=== PATIENT | male | born 1960 | race Caucasian/White ===

== ENCOUNTER 2023-12-10 14:02 | Emergency (ER) | payer BC ==
[2023-12-10] MEDS ORDERED: BISACODYL E.C. 5 MG TAB PO ONE (14:49)
[2023-12-10] MEDS ORDERED: NA CHLORIDE 0.9% 1,000 ML ONE (14:50)
[2023-12-10] MEDS ORDERED: LACTULOSE 20 GM/30 ML UCUP ONE (14:50)
[2023-12-10 14:57] LABS: Absolute Lymphocytes (CBC) 0.6 K/uL (0.7-4.9); Absolute Monocytes 0.3 K/uL (0.1-1.3); Absolute Neutrophil 7.6 K/uL (1.8-8.0); Basophils % 0.3 % (0-1.3); Eosinophils % 0.1 % (0-4.4); Hematocrit 46.5 % (39.6-49.0); Hemoglobin 15.6 g/dL (13.6-17.9); Lymphocytes % 7.4 % (15.3-44.8); MCHC 33.6 g/dL (32.0-36.0); MCV 89.3 fL (80-100); MPV 6.4 fL (7.6-11.3); Monocytes % 3.4 % (3.3-12.3); Neutrophils % 88.8 % (41.7-73.7); Nucleated Red Blood Cells % 0.4 % (0-0); Platelets 264 thou/uL (152-406); Red Cell Distribution Width 14.3 % (12.1-15.2)
[2023-12-10 15:09] LABS: Albumin 3.9 g/dL (3.4-5.0); Anion Gap 5.8 mEq/L (5.0-15.0); Bilirubin Total 0.5 mg/dL (0.2-1.0); Globulin 4.1 g/dL (2.3-3.5); Potassium 3.8 mEq/L (3.5-5.1)
--- NOTE | 2023-12-10 16:03 | RAD REPORT ---
EXAMINATION: CT ABDOMEN AND PELVIS WITH CONTRAST CLINICAL INDICATION: Male, 62 years old.Abd pain;Constipation TECHNIQUE: CT abdomen and pelvis was performed, after the administration of IV contrast, as [facility]. Axial, sagittal and coronal reconstructions were obtained. One or more of the following dose reduction techniques were used: Automated exposure control, adjustment of the mA and/o r kV according to patient size, and/or iterative reconstruction. Unless otherwise specified, incidental findings do not require dedicated imaging follow-up. [id number]. COMPARISON: No prior exam. FINDINGS: LOWER CHEST: The visualized lung bases are clear. LIVER: Low-density lesion in the hepatic dome has benign imaging features. Hepatic steatosis GALLBLADDER/BILE DUCT: Cholecystectomy? PANCREAS: No significant abnormality. SPLEEN: Normal size. No focal lesion. ADRENALS: Normal; no mass. KIDNEYS AND URETERS: Normal size and contour. No hydronephrosis. GASTROINTESTINAL TRACT: Nonspecific small bowel fluid present. Moderate formed stool in the colon.Nor mal appendix. PERITONEUM: Mild nonspecific mesenteric edema. No pathologic lymphadenopathy. Fat-containing umbilica l hernia. LYMPH NODES: No lymphadenopathy. ABDOMINAL AORTA AND OTHER VESSELS: Normal caliber aorta and IVC. Mild atherosclerotic changes. URINARY BLADDER: Normal contour. REPRODUCTIVE ORGANS: No pathologic process MUSCULOSKELETAL: No acute or suspicious osseous abnormality. Moderate to severe disc height loss at L 5-S1. ADDITIONAL FINDINGS: None. IMPRESSION: No definite acute findings identified. Normal appendix. Nonspecific mesenteric edema which could refl ect mesenteric panniculitis.No bowel obstruction.
[2023-12-10] MEDS ORDERED: MAGNESIUM CITRATE 300 ML BOT ONE (17:46)
--- NOTE | 2023-12-10 17:47 | ER ---
Nurse's Notes [facility] Name: Wyatt Mac Jr Age: 62 yrs Sex: Male : 1960 Arrival Date: 12/10/2023 Time: 14:02 Bed 20 Private MD: Diagnosis: Constipation, unspecified;Other hemorrhoids-external Presentation: 12/09 14:31 Chief complaint: Patient states: "I've been on a Keto diet for the past 19 months and aa5 I've had constipation but this time it's been about a week since last bowel movement". Pt states "something on the inside came out when I was trying to have a bowel movement". 14:31 Coronavirus screen: At this time, the client does not indicate any symptoms associated aa5 with coronavirus-19. Ebola Screen: Patient denies travel to an Ebola-affected area in the 21 days before illness onset. Initial Sepsis Screen: Does the patient meet any 2 criteria? No. Patient's initial sepsis screen is negative. Does the patient have a suspected source of infection? No. Patient's initial sepsis screen is negative. Risk Assessment: Do you want to hurt yourself or someone else? Patient reports no desire to harm self or others. Onset of symptoms was December 2023. 14:31 Acuity: NERY 3 aa5 14:31 Method Of Arrival: Ambulatory aa5 Historical: - Allergies: 14:32 No Known Allergies; aa5 - PMHx: 14:32 Bladder problem; Hypertension (weight controlled); aa5 - PSHx: 14:32 Tonsillectomy; Cholecystectomy; aa5 14:34 Prostate Sx; aa5 - Immunization history:: Adult Immunizations up to date. - Infectious Disease History:: Denies. - Social history:: Smoking status: Patient denies any tobacco usage or history of. Screenin:02 [facility] ED Fall Risk Assessment (Adult) History of falling in the last 3 months, ll1 including since admission No falls in past 3 months (0 pts) Confusion or Disorientation No (0 pts) Intoxicated or Sedated No (0 pts) Impaired Gait No (0 pts) Mobility Assist Device Used No (0 pt) Altered Elimination Yes (1 pt) Score/Fall Risk Level 0 - 2 = Low Risk Maintained a safe environment, Hourly rounding (assess needs \\T\\ fall precautionary measures) done. Abuse screen: Denies threats or abuse. Nutritional screening: No deficits noted. Tuberculosis screening: No symptoms or risk factors identified. Assessment: 14:55 General: Appears distressed, uncomfortable, Behavior is calm, cooperative, appropriate ll1 for age. Pain: Complains of pain in abdomen. GI: Reports lower abdominal pain, constipation. 15:12 Reassessment: No changes from previously documented assessment. reports medium sized ll1 BM, gait steady from restroom. 16:10 Reassessment: No changes from previously documented assessment. Patient and/or family ll1 updated on plan of care and expected duration. Pain level reassessed. Patient is alert, oriented x 3, equal unlabored respirations, skin warm/dry/pink. 17:38 Reassessment: Ryann Parks at for rectal exam. ll1 17:38 GI: Bowel sounds present X 4 quads. Abd is soft and non tender X 4 quads. ll1 17:59 Reassessment: No changes from previously documented assessment. Patient and/or family ll1 updated on plan of care and expected duration. Pain level reassessed. Patient is alert, oriented x 3, equal unlabored respirations, skin warm/dry/pink. Patient states feeling better. Patient states symptoms have improved. Vital Signs: 14:31 BP 147 / 95; Pulse 90; Resp 19 S; Temp 98.7(O); Pulse Ox 99% on R/A; Weight 107.5 kg aa5 (R); Height 6 ft. 4 in. (R); 17:58 BP 118 / 82; Pulse 89; Resp 19; Pulse Ox 99% ; ll1 14:31 Body Mass Index 28.85 (107.50 kg, 193.04 cm) aa5 ED Course: 14:06 Patient arrived in ED. mg5 14:12 Mian Parks PA is PHCP. cp 14:12 Raul Amaya MD is Attending Physician. cp 14:31 Arm band placed on. aa5 14:36 Triage completed. aa5 14:40 Shamir Goodman, MARGARET is Primary Nurse. ll1 14:40 Patient placed in an exam room, on a stretcher. ll1 14:55 No provider procedures requiring assistance completed. Inserted saline lock: 22 gauge ll1 in right antecubital area, using aseptic technique. Blood collected. Flushed with 10 mL NS. 14:55 Initial lab(s) drawn, by me, sent to lab. ll1 15:03 Patient has correct armband on for positive identification. Bed in low position. ll1 Provided Education on: ER procedures and process. Cardiac monitoring not applicable on this patient. 15:51 CT Abd/Pelvis - PO and IV Contrast In Process Unspecified. EDMO 17:45 Stefan Gray MD is Referral Physician. cp 17:45 Referral Physician role handed off by Stefan Gray MD cp 17:45 Stefan Gray MD is Referral Physician. cp 17:59 IV discontinued, intact, bleeding controlled, No redness/swelling at site. Pressure ll1 dressing applied. Administered Medications: 14:55 Drug: NS 0.9% IV 1000 ml IV at 1 bolus Per protocol; to be given as a bolus over 60 ll1 minutes Route: IV; Rate: 1 bolus; Site: right antecubital; 16:00 Follow up: Response: No adverse reaction; IV Status: Completed infusion; IV Intake: ll1 1000ml 14:55 Drug: Lactulose PO 30 grams 45 ml PO once Volume: 45 ml; Route: PO; ll1 17:39 Follow up: Response: No adverse reaction ll1 14:55 Drug: Dulcolax PO Delayed Release Tablet 5 mg PO once Route: PO; ll1 17:39 Follow up: Response: No adverse reaction; RASS: Alert and Calm (0) ll1 17:58 Drug: Magnesium Citrate PO Liquid 300 ml PO once Route: PO; ll1 17:59 Follow up: Response: No adverse reaction 1 Medication: 15:03 VIS not applicable for this client. ll1 Intake: 16:00 IV: 1000ml; Total: 1000ml. ll1 Outcome: 17:46 Discharge ordered by . cp 17:59 Discharged to home ambulatory, ll1 17:59 Condition: stable 17:59 Discharge instructions given to patient, Instructed on discharge instructions, follow up and referral plans. medication usage, Demonstrated understanding of instructions, follow-up care, medications, Prescriptions given X 2, 17:59 Patient left the ED. 1 Signatures: Dispatcher [facility] [place] Luma Sam RN RN aa5 Mian Parks PA PA Shamir Odonnell RN RN ll1 Lyly Roque mg5 Corrections: (The following items were deleted from the chart) 14:34 14:32 PMHx: Hypertension; aa5 aa5
--- NOTE | 2023-12-10 17:47 | EDPHYS ---
Physician Documentation [facility] Name: Wyatt Mac Jr Age: 62 yrs Sex: Male : 1960 Arrival Date: 12/10/2023 Time: 14:02 Bed 20 Private MD: ED Physician Raul Amaya HPI: 12/09 14:40 This 62 yrs old Male presents to ER via Ambulatory with complaints of Constipation. cp 14:40 The patient presents with abdominal pain constipation. cp 14:40 Associated signs and symptoms: Pertinent negatives: nausea and vomiting, anorexia, cp diarrhea, fever, testicular pain. The symptoms are described as crampy. Patient reports last bowel movement was over 1 week ago. Historical: - Allergies: 14:32 No Known Allergies; aa5 - PMHx: 14:32 Bladder problem; Hypertension (weight controlled); aa5 - PSHx: 14:32 Tonsillectomy; Cholecystectomy; aa5 14:34 Prostate Sx; aa5 - Immunization history:: Adult Immunizations up to date. - Infectious Disease History:: Denies. - Social history:: Smoking status: Patient denies any tobacco usage or history of. ROS: 14:45 Constitutional: Negative for body aches, chills, fever, poor PO intake, cp 14:45 Eyes: Negative for injury, pain, redness, and discharge, cp 14:45 ENT: Negative for drainage from ear(s), ear pain, sore throat, difficulty swallowing, difficulty handling secretions, 14:45 Cardiovascular: Negative for chest pain, 14:45 Respiratory: Negative for cough, shortness of breath, wheezing, 14:45 Abdomen/GI: Positive for constipation, abdominal cramps, Negative for vomiting, diarrhea, black/tarry stool, rectal bleeding, 14:45 Neuro: Negative for altered mental status, dizziness, headache, weakness, 14:45 All other systems are negative, Exam: 14:52 Head/Face: Normocephalic, atraumatic. cp 14:52 Constitutional: The patient appears in no acute distress, alert, awake, non-toxic, well developed, well nourished, uncomfortable, 14:52 Eyes: Periorbital structures: appear normal, Conjunctiva: normal, no exudate, no cp injection, Sclera: no appreciated abnormality, Lids and lashes: appear normal, bilaterally, 14:52 ENT: External ear(s): are unremarkable, Nose: is normal, Mouth: Lips: moist, Oral mucosa: moist, Posterior pharynx: Airway: no evidence of obstruction, patent, 14:52 Chest/axilla: Inspection: normal, 14:52 Cardiovascular: Rate: normal, Rhythm: regular, 14:52 Respiratory: the patient does not display signs of respiratory distress, Respirations: normal, no use of accessory muscles, no retractions, labored breathing, is not present, Breath sounds: are clear throughout, no decreased breath sounds, no stridor, no wheezing, 14:52 Abdomen/GI: Inspection: abdomen appears normal, Bowel sounds: active, all quadrants, Palpation: soft, in all quadrants, mild abdominal tenderness, in all quadrants, 14:52 Back: CVA tenderness, is absent, 17:40 : Rectal exam: hemorrhoid(s), external, inflammed, cp Vital Signs: 14:31 BP 147 / 95; Pulse 90; Resp 19 S; Temp 98.7(O); Pulse Ox 99% on R/A; Weight 107.5 kg aa5 (R); Height 6 ft. 4 in. (R); 17:58 BP 118 / 82; Pulse 89; Resp 19; Pulse Ox 99% ; ll1 14:31 Body Mass Index 28.85 (107.50 kg, 193.04 cm) aa5 MDM: 14:33 Medical Screening Exam initiated cp 17:45 Data reviewed: vital signs, nurses notes, lab test result(s), radiologic studies, CT cp scan. 17:45 Differential diagnosis: appendicitis, bowel obstruction, cholecystitis, Cholelithiasis, cp non-specific abd pain, pancreatitis, urinary tract infection. I considered the following discharge prescriptions or medication management in the emergency department Medications were administered in the Emergency Department. See MAR. Counseling: I had a detailed discussion with the patient and/or guardian regarding the historical points, exam findings, and any diagnostic results supporting the discharge/admit diagnosis, lab results, radiology results, the need for outpatient follow up, a general surgeon, to return to the emergency department if symptoms worsen or persist or if there are any questions or concerns that arise at home. Response to treatment: the patient's symptoms have markedly improved after treatment, and as a result, I will discharge patient. Special discussion: Based on the patient's Hx, exam, and Dx evaluation, there is no indication for emergent surgery or inpatient Tx. It is understood by the patient/guardian that if the Sx's persist or worsen they need to return immediately for re-evaluation. 12/09 14:36 Order name: CBC with Diff; Complete Time: 16:22 cp 12/09 16:23 Interpretation: Normal except: MPV 6.4; VINCENT% 88.8; LYM% 7.4; LYMA 0.6. cp 12/09 14:36 Order name: CMP; Complete Time: 16:22 cp 12/09 16:23 Interpretation: Normal except: GLUC 130; BUN 22; GFR 72; GLOB 4.1; A/G 1.0. 12/09 14:36 Order name: Lipase; Complete Time: 16:22 cp 12/09 14:36 Order name: CT Abd/Pelvis - PO and IV Contrast; Complete Time: 16:22 cp 12/09 16:24 Interpretation: Report reviewed. 12/09 14:36 Order name: IV Saline Lock; Complete Time: 14:40 cp 12/09 14:36 Order name: Labs collected and sent; Complete Time: 14:40 cp Administered Medications: 14:55 Drug: NS 0.9% IV 1000 ml IV at 1 bolus Per protocol; to be given as a bolus over 60 ll1 minutes Route: IV; Rate: 1 bolus; Site: right antecubital; 16:00 Follow up: Response: No adverse reaction; IV Status: Completed infusion; IV Intake: ll1 1000ml 14:55 Drug: Lactulose PO 30 grams 45 ml PO once Volume: 45 ml; Route: PO; ll1 17:39 Follow up: Response: No adverse reaction ll1 14:55 Drug: Dulcolax PO Delayed Release Tablet 5 mg PO once Route: PO; ll1 17:39 Follow up: Response: No adverse reaction; RASS: Alert and Calm (0) ll1 17:58 Drug: Magnesium Citrate PO Liquid 300 ml PO once Route: PO; ll1 17:59 Follow up: Response: No adverse reaction ll1 Disposition Summary: 12/10/23 17:46 Discharge Ordered Notes: Location: Home cp Problem: new cp Symptoms: have improved cp Condition: Stable cp Diagnosis - Constipation, unspecified cp - Other hemorrhoids - external cp Followup: cp - With: Stefan Gray MD - When: 5 - 6 days - Reason: external hemmorrhoids Followup: cp - With: Stefan Gray MD - When: 5 - 6 days - Reason: external hemorrhoids Discharge Instructions: - Discharge Summary Sheet cp - Constipation, Adult cp - High-Fiber Eating Plan cp - Hemorrhoids cp - Surgical Procedures for Hemorrhoids cp - Nonsurgical Procedures for Hemorrhoids cp Forms: - Medication Reconciliation Form cp - Antibiotic Education cp - Prescription Opioid Use cp - Patient Portal Instructions cp - Leadership Thank You Letter cp Prescriptions: - Miralax 17 gram Oral powder in packet - take 1 packet ORAL route every morning as needed for constipation; 30 packet; cp Refills: 0, Product Selection Permitted - Anusol-HC 25 mg Rectal Suppository - insert 1 suppository RECTAL route every 12 hours As needed; 20 suppository; cp Refills: 0, Product Selection Permitted Signatures: Dispatcher [employer] Luma Dixon RN RN aa5 Mian Parks PA PA cp Shamir Goodman RN RN ll1 Corrections: (The following items were deleted from the chart) 14:34 14:32 PMHx: Hypertension; aa5 aa5
[2023-12-10 18:26] VITALS: TEMP 98.7; O2SAT 99
[2023-12-10 18:31] VITALS: BP 118/82
== END 2023-12-10 17:59 | disposition home or self-care (01) ==
LOC: ER 14:02
DX: K59.00 Constipation, unspecified (principal); K64.4 Residual hemorrhoidal skin tags
CPT/HCPCS: 85025; 36415; 83690; 80053; 74177; 96360; 99284; Q9967; J7030